=== PATIENT | female | born 1980 | race Caucasian/White ===

== ENCOUNTER 2019-02-23 05:30 | Day surgery (SDC) | payer MEDICAID, OTHER ==
[~2019-02-23] VITALS: Ht 152.4 cm; Wt 70.7 kg
[~2019-02-23 05:30] MED LIST: BUPIVACAINE 0.5%/EPI (SDV) 30 ML INJ INJ ONE
[2019-02-23 06:15] VITALS: Ht 152.4 cm; Wt 70.7 kg
[2019-02-23 06:17] VITALS: BP 117/73; PULSE 100; RESP 16
[2019-02-23] MEDS ORDERED: CEFAZOLIN 2 GM/50 ML (PMX) 50 ML IVPB SCH (06:30)
[2019-02-23] MEDS ORDERED: LACTATED RINGER'S 1,000 ML IV SCH (06:30)
[2019-02-23] MEDS ORDERED: BUPIVACAINE 0.5%/EPI (SDV) 30 ML INJ ONE (06:47)
[2019-02-23] MEDS ORDERED: DEXAMETHASONE 4 MG/ML 5 ML INJ ONE (07:13)
[2019-02-23] MEDS ORDERED: ONDANSETRON 4 MG INJ ONE (07:13)
[2019-02-23] MEDS ORDERED: FENTAnyl 50 MCG/ML VIAL ONE (07:13)
[2019-02-23] MEDS ORDERED: MIDAZOLAM 1 MG/ML 2 ML INJ ONE (07:13)
[2019-02-23] MEDS ORDERED: LIDOCAINE 100 MG SYRINGE ONE (07:13)
[2019-02-23] MEDS ORDERED: PROPOFOL 20 ML ONE (07:13)
[2019-02-23] MEDS ORDERED: CEFAZOLIN 1 GM INJ ONE (07:13)
[2019-02-23] MEDS ORDERED: ROCURONIUM 50 MG INJ ONE (07:13)
[2019-02-23] MEDS ORDERED: SUGAMMADEX SODIUM 200 MG/2 ML VIAL IV ONE (07:14)
[2019-02-24] MEDS ORDERED: MIDAZOLAM 1 MG/ML 2 ML INJ ONE (14:17)
[2019-02-24] MEDS ORDERED: morphine SULFATE/PF (10 MG/10 ML) INJ ONE (14:18)
[2019-02-24] MEDS ORDERED: LIDOCAINE 2% (SDV) 5 ML INJ ONE (17:38)
[2019-02-24] MEDS ORDERED: GLYCOPYRROLATE 0.4 MG INJ ONE (17:38)
[2019-02-24] MEDS ORDERED: NEOSTIGMINE 3 MG/3 ML SYRINGE ONE (17:38)
[2019-02-24] MEDS ORDERED: ROCURONIUM 50 MG INJ ONE (17:38)
[2019-02-24] MEDS ORDERED: PROPOFOL 20 ML ONE (17:38)
[2019-02-24] MEDS ORDERED: CEFAZOLIN 1 GM INJ ONE (17:38)
[2019-02-24] MEDS ORDERED: ONDANSETRON 4 MG INJ ONE (17:39)
== END 2019-02-23 19:00 | disposition home or self-care (01) ==
LOC: SDS 05:30
PROVIDERS: ATTEND Specialist
DX: Z30.2 Encounter for sterilization (principal); Z32.01 Encounter for pregnancy test, result positive; Z53.09 Procedure and treatment not carried out because of other contraindication
CPT/HCPCS: 84703; 85025; 93005; J0690; J1100; J2001; J2250; J2274; J2405; J2710; J3010